=== PATIENT | female | born 1950 | race Caucasian/White ===

== ENCOUNTER 2023-09-27 19:57 | Inpatient (IN) ==
[2023-09-27] MEDS: Acetaminophen IV 1 GM/100ML 1,000 MG/100 ML BAG IV ONE (20:43)
[2023-09-27 20:45] LABS: Hemoglobin 10.1 g/dL (11.5-14.3); Mean Corpuscular Hemoglobin 23.8 pg (27-33); Mean Corpuscular Hgb Conc 32.5 g/dL (31-36); Mean Corpuscular Volume 73.1 fL (80-97); Platelet Count 125 10^3/uL (150-450); Red Blood Count 4.24 10^6/uL (3.63-4.92); Red Cell Distribution Width 18.1 % (12-17); White Blood Count 10.9 10^3/uL (3.8-11.8)
[2023-09-27 20:47] LABS: Activated Partial Thrombo Time 27.2 seconds (26.0-38.0); INR 1.3 (0.83-1.13)
[2023-09-27] MEDS: Cefepime 2 GM in Dextrose 2 GM/50 ML BAG IV ONE (21:00)
[2023-09-27 21:08] LABS: ABS Eosinophils 0.1 10^3/uL (0.0-0.5); ABS Lymphocytes 1.4 10^3/uL (1.0-4.8); ABS Monocytes 0.8 10^3/uL (0.0-0.9); ABS Neutrophils 8.6 10^3/uL (1.5-7.6); ABS Nucleated RBC 0.01 10^3/ul; Eosinophil % 0.9 %; Lymphocyte % 12.7 %; Nucleated Red Blood Cells % 0.1 %/100WBC (0.0-0.8)
[2023-09-27] MEDS: Lactated Ringers 1000 ml BAG 1,000 ML IV ONE (21:32)
[2023-09-27 21:41] LABS: Albumin 3.2 g/dL (3.2-5.2); Albumin/Globulin Ratio 0.8 (1-3); C Reactive Protein 116.25 mg/L (<8.01); Calcium 10.3 mg/dL (8.6-10.3); Creatinine, Serum 0.93 mg/dL (0.51-0.95); Globulin 3.9 g/dL (2-4); Potassium 4.9 mmol/L (3.5-5.0); Total Bilirubin 0.8 mg/dL (0.2-1.0); Total Protein 7.1 g/dL (6.4-8.9); eGFR CKD-EPI 64.5 (>60)
[2023-09-27 22:26] LABS: Urine Appearance Clear; Urine Bilirubin Negative (Negative); Urine Blood Negative (Negative); Urine Color Light-Yellow; Urine Glucose 4+ (>=1000 mg/dL) (Negative); Urine Ketones Negative (Negative); Urine Nitrite Negative (Negative); Urine Protein Negative (Negative); Urine Urobilinogen Negative (Negative)
[2023-09-27 22:42] LABS: High Sensitivity Troponin 1 Hr 10 pg/mL (<15)
[2023-09-27] MEDS: Vancomycin 1,500 MG in NS 0.9% 250 ml 250 ML IVPB ONE (22:45)
[2023-09-28] MEDS: Lactated Ringers 1000 ml BAG 1,000 ML IV SCH ×2 (00:43→22:02)
[2023-09-28] MEDS ORDERED: Vancomycin per Pharmacy 1 EA NOTE FOLLOW UP SCH (01:00)
[2023-09-28] MEDS ORDERED: Cefepime 2 GM in Dextrose 2 GM/50 ML BAG IV SCH (05:30)
[2023-09-28] MEDS: ceFAZolin 2 GM PREMIX 2 GM/50 ML BAG IV SCH ×2 (05:32→22:10)
[2023-09-28 06:25] LABS: Calcium 9.7 mg/dL (8.6-10.3); Creatinine, Serum 0.89 mg/dL (0.51-0.95); Potassium 4.7 mmol/L (3.5-5.0)
[2023-09-28 06:42] LABS: ABS Eosinophils 0.1 10^3/uL (0.0-0.5); ABS Lymphocytes 0.7 10^3/uL (1.0-4.8); ABS Monocytes 0.8 10^3/uL (0.0-0.9); ABS Neutrophils 11.9 10^3/uL (1.5-7.6); Eosinophil % 0.5 %; Hematocrit 28.3 % (35-45); Hemoglobin 8.8 g/dL (11.5-14.3); Lymphocyte % 5.4 %; Mean Corpuscular Hemoglobin 22.7 pg (27-33); Mean Corpuscular Hgb Conc 31.2 g/dL (31-36); Mean Corpuscular Volume 72.7 fL (80-97); Mean Platelet Volume 8.6 fL (7.5-11.2); Platelet Count 116 10^3/uL (150-450); Red Blood Count 3.88 10^6/uL (3.63-4.92); Red Cell Distribution Width 18.2 % (12-17); White Blood Count 13.5 10^3/uL (3.8-11.8)
[2023-09-28] MEDS: DULoxetine DR 60 mg CAP PO SCH (08:19)
[2023-09-28] MEDS: Insulin GLARGINE 100 un/ml 10 ml VIAL SUBCUT SCH (08:19)
[2023-09-28] MEDS: Acetaminophen IV 1 GM/100ML 1,000 MG/100 ML BAG IV PRN (08:26)
[2023-09-28] MEDS: Dextrose 50% Syringe 50 ml 25 GM/50 ML SYRINGE IV PUSH PRN (14:19)
[2023-09-28] MEDS ORDERED: Bupivacaine 0.25% SDV 30 ML ONE (16:34)
[2023-09-28] MEDS ORDERED: Dexamethasone IV 4 MG/ML VIAL 1 ml VIAL ONE (16:59)
[2023-09-28] MEDS ORDERED: Midazolam 2 mg/2 ml VIAL 1 mg/ml 2 ml VIAL (2 mg) ONE (16:59)
[2023-09-28] MEDS ORDERED: Lidocaine 2% PF 5 ML VIAL ONE (16:59)
[2023-09-28] MEDS ORDERED: Ondansetron 4 mg VIAL 2 MG/ML 2 ml VIAL ONE (16:59)
[2023-09-28] MEDS ORDERED: fentaNYL 100 mcg/2 ml 50 MCG/ML VIAL ONE ×3 (16:59→20:11)
[2023-09-28] MEDS ORDERED: Propofol 10 MG/ML 20 ML BTL ONE (16:59)
[2023-09-28] MEDS ORDERED: Rocuronium 50 mg VIAL 10 mg/ml 5 ml VIAL (50 mg) ONE (18:00)
[2023-09-28] MEDS ORDERED: Ondansetron 4 mg VIAL 2 MG/ML 2 ml VIAL IV PRN (20:07)
[2023-09-28] MEDS ORDERED: Naloxone 0.4 mg VIAL 0.4 mg/ml 1 ml VIAL IV PRN (20:07)
[2023-09-28] MEDS ORDERED: HYDROmorphone 1 MG/1 ML SYRINGE IV PRN (20:07)
[2023-09-28] MEDS ORDERED: Acetaminophen IV 1 GM/100ML 1,000 MG/100 ML BAG IV ONE (20:11)
[2023-09-28] MEDS: fentaNYL 100 mcg/2 ml 50 MCG/ML VIAL IV PRN (20:20)
[2023-09-28] MEDS: Acetaminophen IV 1 GM/100ML 1,000 MG/100 ML BAG IV ONE (20:23)
[2023-09-28] MEDS ORDERED: NS 0.45% 1000 ml BAG 1,000 ML IV SCH (21:00)
[2023-09-28] MEDS: Triamcinolone 0.5% OINT 1 TUBE TOPICAL SCH (22:31)
[2023-09-28] MEDS: Buffered Lidocaine 1% SYRIN 1 ml INTRADERM ONE (22:59)
[2023-09-28] MEDS: Scopolamine 1 mg/72hr PATCH TRANSDERM ONE (22:59)
[2023-09-29] MEDS ORDERED: Naloxone 0.4 mg VIAL 0.4 mg/ml 1 ml VIAL ONE (09:15)
[2023-09-29] MEDS ORDERED: fentaNYL 100 mcg/2 ml 50 MCG/ML VIAL ONE (09:15)
[2023-09-29] MEDS ORDERED: Flumazenil 0.5 mg/5 ml 0.1 MG/ML 5 ml VIAL ONE (09:15)
[2023-09-29] MEDS ORDERED: Midazolam 5 mg/5 ml VIAL 1 mg/ml 5 ml VIAL (5 mg) ONE (09:16)
[2023-09-29] MEDS: Lidocaine 1% MPF 5 ML VIAL INJ ONE (12:26)
[2023-09-29] MEDS: Midazolam 10 mg/10 ml VIAL 1 mg/ml 10 ml VIAL (10 mg) IV SLOW PU ONE (12:27)
[2023-09-29] MEDS: fentaNYL 100 mcg/2 ml 50 MCG/ML VIAL IV SLOW PU ONE (12:27)
[2023-09-29 15:58] LABS: ABS Lymphocytes 0.9 10^3/uL (1.0-4.8); ABS Monocytes 0.7 10^3/uL (0.0-0.9); ABS Neutrophils 9.4 10^3/uL (1.5-7.6); Eosinophil % 0.1 %; Hematocrit 28.6 % (35-45); Hemoglobin 8.8 g/dL (11.5-14.3); Lymphocyte % 8.3 %; Mean Corpuscular Hemoglobin 22.6 pg (27-33); Mean Corpuscular Hgb Conc 30.9 g/dL (31-36); Mean Corpuscular Volume 73.3 fL (80-97); Mean Platelet Volume 8.8 fL (7.5-11.2); Platelet Count 122 10^3/uL (150-450); Red Cell Distribution Width 18.2 % (12-17)
[2023-09-29 16:06] LABS: Calcium 9.9 mg/dL (8.6-10.3); Creatinine, Serum 0.9 mg/dL (0.51-0.95); Magnesium 1.6 mg/dL (1.9-2.7); Potassium 4.8 mmol/L (3.5-5.0); eGFR CKD-EPI 67.1 (>60)
[2023-09-30 09:06] LABS: Hematocrit 31.5 % (35-45); Mean Corpuscular Hemoglobin 23.2 pg (27-33); Mean Corpuscular Hgb Conc 31.8 g/dL (31-36); Mean Corpuscular Volume 73.2 fL (80-97); Mean Platelet Volume 9.3 fL (7.5-11.2); Platelet Count 152 10^3/uL (150-450); Red Blood Count 4.31 10^6/uL (3.63-4.92); Red Cell Distribution Width 18.8 % (12-17); White Blood Count 14.6 10^3/uL (3.8-11.8)
[2023-09-30 09:28] LABS: Calcium 10.5 mg/dL (8.6-10.3); Creatinine, Serum 0.84 mg/dL (0.51-0.95); Potassium 4.7 mmol/L (3.5-5.0); eGFR CKD-EPI 72.9 (>60)
[2023-09-30 09:45] LABS: ABS Eosinophils 0.1 10^3/uL (0.0-0.5); ABS Lymphocytes 1.8 10^3/uL (1.0-4.8); ABS Monocytes 1.1 10^3/uL (0.0-0.9); ABS Neutrophils 11.7 10^3/uL (1.5-7.6); ABS Nucleated RBC 0.01 10^3/ul; Eosinophil % 0.6 %; Lymphocyte % 12.1 %; Microcytosis 2+; Nucleated Red Blood Cells % 0.1 %/100WBC (0.0-0.8)
[2023-10-01] MEDS: Docusate LIQ 100 MG/10 ML UDC PO SCH (10:39)
[2023-10-01 11:53] LABS: Hematocrit 29.1 % (35-45); Hemoglobin 9.2 g/dL (11.5-14.3); Mean Platelet Volume 8.7 fL (7.5-11.2); Platelet Count 139 10^3/uL (150-450); Red Blood Count 3.96 10^6/uL (3.63-4.92); Red Cell Distribution Width 18.1 % (12-17); White Blood Count 11.6 10^3/uL (3.8-11.8)
[2023-10-01 12:06] LABS: Calcium 9.2 mg/dL (8.6-10.3); Creatinine, Serum 0.86 mg/dL (0.51-0.95); eGFR CKD-EPI 70.8 (>60)
[2023-10-01 13:15] LABS: ABS Basophils 0.1 10^3/uL (0.0-0.1); ABS Eosinophils 0.1 10^3/uL (0.0-0.5); ABS Lymphocytes 1.7 10^3/uL (1.0-4.8); ABS Monocytes 1.1 10^3/uL (0.0-0.9); ABS Neutrophils 8.7 10^3/uL (1.5-7.6); Eosinophil % 0.7 %; Lymphocyte % 14.2 %; Mean Corpuscular Hemoglobin 23.2 pg (27-33); Mean Corpuscular Hgb Conc 31.5 g/dL (31-36); Mean Corpuscular Volume 73.6 fL (80-97); Microcytosis 2+
[2023-10-01 14:46] LABS: Anion Gap 8 mmol/L (2-16); Blood Urea Nitrogen 19 mg/dL (6-24); CO2 Carbon Dioxide 23 mmol/L (22-32); Calcium 9.8 mg/dL (8.6-10.3); Chloride 94 mmol/L (101-111); Creatinine, Serum 0.84 mg/dL (0.51-0.95); Glucose 243 mg/dL (70-100); Sodium 125 mmol/L (135-145); eGFR CKD-EPI 72.9 (>60)
[2023-10-01 15:46] LABS: Potassium, Whole Blood 5.6 mmol/L (3.4-4.5)
[2023-10-01 16:27] LABS: IgG Immunoblot Positive (Negative); IgM Immunoblot Negative (Negative)
[2023-10-01 16:32] LABS: Osmolality Serum 278 mOsm/kg (275-295)
[2023-10-01] MEDS: NS 0.9% 1000 ml BAG 1,000 ML IV SCH (21:31)
[2023-10-01] MEDS: Sodium Polystyrene ORAL.SUSP 15 GM/60 ML BTL PO ONE (21:48)
[2023-10-02 07:22] LABS: Hematocrit 28.1 % (35-45); Hemoglobin 9.1 g/dL (11.5-14.3); Mean Corpuscular Hemoglobin 23.4 pg (27-33); Mean Corpuscular Hgb Conc 32.4 g/dL (31-36); Mean Corpuscular Volume 72.3 fL (80-97); Mean Platelet Volume 9.4 fL (7.5-11.2); Platelet Count 121 10^3/uL (150-450); Red Blood Count 3.88 10^6/uL (3.63-4.92); Red Cell Distribution Width 17.9 % (12-17)
[2023-10-02 07:38] LABS: Calcium 9.4 mg/dL (8.6-10.3); Creatinine, Serum 0.68 mg/dL (0.51-0.95); Magnesium 1.5 mg/dL (1.9-2.7); Potassium 4.3 mmol/L (3.5-5.0); eGFR CKD-EPI 91.3 (>60)
[2023-10-02] MEDS: Insulin GLARGINE 100 un/ml 10 ml VIAL SUBCUT SCH (08:46)
[2023-10-02] MEDS: Polyethylene Glycol 3350 17 GM PACKET PO PRN (08:47)
[2023-10-02] MEDS: Magnesium Sulfate 2 gm BAG 2 GM/50 ML BAG IVPB ONE (08:50)
[2023-10-02] MEDS ORDERED: Dextrose 50% Syringe 50 ml 25 GM/50 ML SYRINGE IV PUSH PRN (09:44)
[2023-10-02 10:02] LABS: ABS Basophils 0.1 10^3/uL (0.0-0.1); ABS Eosinophils 0.1 10^3/uL (0.0-0.5); ABS Lymphocytes 1.6 10^3/uL (1.0-4.8); ABS Monocytes 1.2 10^3/uL (0.0-0.9); ABS Neutrophils 7.9 10^3/uL (1.5-7.6); Lymphocyte % 14.8 %; Microcytosis 2+
[2023-10-02 11:12] LABS: Urine Osmo 575 mOsm/kg (150-1150)
[2023-10-02] MEDS ORDERED: Magnesium Hydroxide LIQ 30 ML UDC PO PRN (11:23)
[2023-10-03 06:57] LABS: Calcium 9.6 mg/dL (8.6-10.3); Creatinine, Serum 0.65 mg/dL (0.51-0.95); Magnesium 1.6 mg/dL (1.9-2.7); Potassium 4.3 mmol/L (3.5-5.0); eGFR CKD-EPI 92.3 (>60)
[2023-10-03 07:38] LABS: ABS Basophils 0.1 10^3/uL (0.0-0.1); ABS Eosinophils 0.1 10^3/uL (0.0-0.5); ABS Lymphocytes 1.3 10^3/uL (1.0-4.8); ABS Monocytes 1.1 10^3/uL (0.0-0.9); ABS Neutrophils 7.4 10^3/uL (1.5-7.6); Eosinophil % 1.1 %; Hematocrit 27.6 % (35-45); Lymphocyte % 13.3 %; Mean Corpuscular Hemoglobin 23.6 pg (27-33); Mean Corpuscular Hgb Conc 32.6 g/dL (31-36); Mean Corpuscular Volume 72.3 fL (80-97); Mean Platelet Volume 8.5 fL (7.5-11.2); Microcytosis 2+; Platelet Count 145 10^3/uL (150-450); Red Blood Count 3.82 10^6/uL (3.63-4.92); Red Cell Distribution Width 17.9 % (12-17); White Blood Count 10.1 10^3/uL (3.8-11.8)
[2023-10-03] MEDS: Polyethylene Glycol 3350 17 GM PACKET PO SCH (08:56)
[2023-10-03 09:09] LABS: Ferritin 64.9 ng/mL (11-307)
[2023-10-03 09:13] LABS: Folate 8.49 ng/mL (5.90-24.80)
[2023-10-03] MEDS: Hemorrhoidal OINT 1 TUBE PR PRN (09:33)
[2023-10-04] MEDS: Enoxaparin 40 MG/0.4 ML SYR SUBCUT SCH (14:20)
[2023-10-04] MEDS: DULoxetine DR 60 mg CAP PO SCH (21:36)
[2023-10-05 06:48] LABS: ABS Eosinophils 0.1 10^3/uL (0.0-0.5); ABS Lymphocytes 1.1 10^3/uL (1.0-4.8); ABS Neutrophils 4.4 10^3/uL (1.5-7.6); Eosinophil % 1.9 %; Hematocrit 25.6 % (35-45); Hemoglobin 8.6 g/dL (11.5-14.3); Lymphocyte % 16.7 %; Mean Corpuscular Hemoglobin 23.9 pg (27-33); Mean Corpuscular Hgb Conc 33.5 g/dL (31-36); Mean Corpuscular Volume 71.5 fL (80-97); Mean Platelet Volume 9.4 fL (7.5-11.2); Platelet Count 209 10^3/uL (150-450); Red Blood Count 3.58 10^6/uL (3.63-4.92); Red Cell Distribution Width 18.7 % (12-17); White Blood Count 6.7 10^3/uL (3.8-11.8)
[2023-10-05 06:54] LABS: Anion Gap 9 mmol/L (2-16); Blood Urea Nitrogen 16 mg/dL (6-24); CO2 Carbon Dioxide 25 mmol/L (22-32); Calcium 9.8 mg/dL (8.6-10.3); Chloride 97 mmol/L (101-111); Creatinine, Serum 0.54 mg/dL (0.51-0.95); Glucose 110 mg/dL (70-100); Sodium 131 mmol/L (135-145); eGFR CKD-EPI 96.6 (>60)
[2023-10-05] MEDS ORDERED: Fluconazole 400 MG IVPREMIX 400 MG/200 ML BAG IVPB SCH (12:00)
[2023-10-05] MEDS: Fluconazole 400 MG IVPREMIX 400 MG/200 ML BAG IVPB SCH (14:03)
[2023-10-05 14:20] VITALS: BP 119/59
[2023-10-06] MEDS ORDERED: Fluconazole 400 MG IVPREMIX 400 MG/200 ML BAG IVPB SCH (15:00)
== END 2023-10-05 16:32 | DRG 513 ==
LOC: EDHOLD 19:57 → ED 19:57 → SUATTDRO 09-28 08:00 → AA 09-28 14:44 → SSU 09-28 21:02
PROVIDERS: ADMIT Hospitalist; ATTEND Internal Medicine

== ENCOUNTER 2023-10-01 10:48 | Inpatient (IN) ==
[2023-10-05] MEDS ORDERED: Dextrose 50% Syringe 50 ml 25 GM/50 ML SYRINGE IV PUSH PRN ×2 (17:15→17:21)
[2023-10-05] MEDS: Hemorrhoidal OINT 1 TUBE PR PRN (19:25)
[2023-10-05] MEDS: Senna TAB 8.6 mg TAB PO PRN (21:36)
[2023-10-05] MEDS: Triamcinolone 0.5% OINT 1 TUBE TOPICAL SCH (21:37)
[2023-10-05] MEDS: ceFAZolin 2 GM in NS PREMIX 2 GM/100 ML BAG IVPB SCH (22:44)
[2023-10-06] MEDS: DULoxetine DR 60 mg CAP PO SCH (08:02)
[2023-10-06] MEDS: Polyethylene Glycol 3350 17 GM PACKET PO SCH (08:05)
[2023-10-06] MEDS: Insulin GLARGINE 100 un/ml 10 ml VIAL SUBCUT SCH (08:09)
[2023-10-06] MEDS: Enoxaparin 40 MG/0.4 ML SYR SUBCUT SCH (13:37)
[2023-10-06] MEDS ORDERED: Fluconazole 400 MG IVPREMIX 400 MG/200 ML BAG IVPB SCH (15:00)
[2023-10-07 06:40] LABS: Albumin 2.8 g/dL (3.2-5.2); Albumin/Globulin Ratio 0.7 (1-3); C Reactive Protein 65.56 mg/L (<8.01); Calcium 10.9 mg/dL (8.6-10.3); Creatinine, Serum 0.61 mg/dL (0.51-0.95); Globulin 4.2 g/dL (2-4); Potassium 4.7 mmol/L (3.5-5.0); Total Bilirubin 0.5 mg/dL (0.2-1.0); eGFR CKD-EPI 93.8 (>60)
[2023-10-07 06:54] LABS: ABS Basophils 0.1 10^3/uL (0.0-0.1); ABS Eosinophils 0.1 10^3/uL (0.0-0.5); ABS Monocytes 0.6 10^3/uL (0.0-0.9); ABS Nucleated RBC 0.02 10^3/ul; Eosinophil % 2.2 %; Hematocrit 29.8 % (35-45); Hemoglobin 9.5 g/dL (11.5-14.3); Lymphocyte % 20.2 %; Mean Corpuscular Hemoglobin 23.3 pg (27-33); Mean Corpuscular Hgb Conc 31.9 g/dL (31-36); Mean Platelet Volume 8.3 fL (7.5-11.2); Nucleated Red Blood Cells % 0.5 %/100WBC (0.0-0.8); Platelet Count 212 10^3/uL (150-450); Red Blood Count 4.08 10^6/uL (3.63-4.92); Red Cell Distribution Width 18.6 % (12-17); White Blood Count 4.7 10^3/uL (3.8-11.8)
[2023-10-08] MEDS: ceFAZolin 2 GM in NS PREMIX 2 GM/100 ML BAG IVPB SCH (02:07)
[2023-10-08] MEDS: DULoxetine DR 60 mg CAP PO SCH (21:30)
[2023-10-09 18:58] LABS: Urine Appearance Clear; Urine Bilirubin Negative (Negative); Urine Blood Negative (Negative); Urine Color Light-Yellow; Urine Glucose Negative (Negative); Urine Ketones Negative (Negative); Urine Nitrite Negative (Negative); Urine Protein Trace (Negative); Urine Specific Gravity 1.019 (1.002-1.030); Urine Urobilinogen Negative (Negative); Urine pH 5.5 (5.0-8.0)
[2023-10-11] MEDS ORDERED: Al Hydrox/Mg Hydrox/Simet LIQ 30 ML UDC PO PRN (11:27)
[2023-10-11] MEDS: Ondansetron ODT 4 mg TAB 4 MG TAB SL PRN (11:54)
[2023-10-11] MEDS: ceFAZolin 2 GM in NS PREMIX 2 GM/100 ML BAG IVPB SCH (13:10)
[2023-10-12] MEDS: Insulin GLARGINE 100 un/ml 10 ml VIAL SUBCUT SCH (09:39)
[2023-10-13 05:42] LABS: ABS Eosinophils 0.2 10^3/uL (0.0-0.5); ABS Lymphocytes 0.8 10^3/uL (1.0-4.8); ABS Monocytes 0.5 10^3/uL (0.0-0.9); ABS Nucleated RBC 0.01 10^3/ul; Eosinophil % 4.7 %; Hematocrit 25.1 % (35-45); Hemoglobin 8.2 g/dL (11.5-14.3); Lymphocyte % 23.8 %; Mean Corpuscular Hemoglobin 23.7 pg (27-33); Mean Corpuscular Hgb Conc 32.6 g/dL (31-36); Mean Corpuscular Volume 72.8 fL (80-97); Mean Platelet Volume 8.2 fL (7.5-11.2); Nucleated Red Blood Cells % 0.2 %/100WBC (0.0-0.8); Platelet Count 160 10^3/uL (150-450); Red Blood Count 3.44 10^6/uL (3.63-4.92); Red Cell Distribution Width 19.3 % (12-17); White Blood Count 3.5 10^3/uL (3.8-11.8)
[2023-10-13 06:01] LABS: Anion Gap 5 mmol/L (2-16); Blood Urea Nitrogen 17 mg/dL (6-24); C Reactive Protein 61.91 mg/L (<8.01); CO2 Carbon Dioxide 30 mmol/L (22-32); Chloride 98 mmol/L (101-111); Creatinine, Serum 0.68 mg/dL (0.51-0.95); Glucose 91 mg/dL (70-100); Potassium 4.3 mmol/L (3.5-5.0); Sodium 133 mmol/L (135-145); eGFR CKD-EPI 91.3 (>60)
[2023-10-13 06:05] LABS: ALT < 3 U/L (7-52); AST 32 U/L (13-39); Albumin 2.7 g/dL (3.2-5.2); Albumin/Globulin Ratio 0.7 (1-3); Alkaline Phosphatase 125 U/L (35-149); Globulin 3.9 g/dL (2-4); Total Bilirubin 0.5 mg/dL (0.2-1.0); Total Protein 6.6 g/dL (6.4-8.9)
[2023-10-13] MEDS: Insulin GLARGINE 100 un/ml 10 ml VIAL SUBCUT SCH (09:46)
[2023-10-16] MEDS: ceFAZolin 2 GM PREMIX 2 GM/50 ML BAG IV SCH (05:15)
[2023-10-16 05:55] LABS: ABS Eosinophils 0.2 10^3/uL (0.0-0.5); ABS Lymphocytes 0.9 10^3/uL (1.0-4.8); ABS Monocytes 0.5 10^3/uL (0.0-0.9); ABS Neutrophils 1.6 10^3/uL (1.5-7.6); Eosinophil % 5.2 %; Hematocrit 26.3 % (35-45); Hemoglobin 8.6 g/dL (11.5-14.3); Lymphocyte % 28.4 %; Mean Corpuscular Hemoglobin 23.8 pg (27-33); Mean Corpuscular Hgb Conc 32.6 g/dL (31-36); Mean Platelet Volume 8.4 fL (7.5-11.2); Platelet Count 174 10^3/uL (150-450); Red Cell Distribution Width 18.9 % (12-17); White Blood Count 3.3 10^3/uL (3.8-11.8)
[2023-10-16 06:19] LABS: Anion Gap 8 mmol/L (2-16); Blood Urea Nitrogen 19 mg/dL (6-24); C Reactive Protein 32.47 mg/L (<8.01); CO2 Carbon Dioxide 30 mmol/L (22-32); Calcium 10.9 mg/dL (8.6-10.3); Chloride 98 mmol/L (101-111); Creatinine, Serum 0.73 mg/dL (0.51-0.95); Glucose 88 mg/dL (70-100); Sodium 136 mmol/L (135-145); eGFR CKD-EPI 86.2 (>60)
[2023-10-16 06:21] LABS: ALT < 3 U/L (7-52); AST 32 U/L (13-39); Albumin 2.8 g/dL (3.2-5.2); Albumin/Globulin Ratio 0.7 (1-3); Alkaline Phosphatase 120 U/L (35-149); Globulin 4.1 g/dL (2-4); Total Bilirubin 0.5 mg/dL (0.2-1.0); Total Protein 6.9 g/dL (6.4-8.9)
[2023-10-16] MEDS: DULoxetine DR 30 mg CAP PO SCH (20:55)
[2023-10-18 10:08] LABS: ABS Eosinophils 0.2 10^3/uL (0.0-0.5); ABS Lymphocytes 1.3 10^3/uL (1.0-4.8); ABS Monocytes 0.8 10^3/uL (0.0-0.9); ABS Neutrophils 3.2 10^3/uL (1.5-7.6); Eosinophil % 2.9 %; Hematocrit 27.7 % (35-45); Hemoglobin 8.8 g/dL (11.5-14.3); Lymphocyte % 23.4 %; Mean Corpuscular Hgb Conc 31.9 g/dL (31-36); Mean Corpuscular Volume 72.1 fL (80-97); Mean Platelet Volume 8.4 fL (7.5-11.2); Platelet Count 186 10^3/uL (150-450); Red Blood Count 3.84 10^6/uL (3.63-4.92); Red Cell Distribution Width 19.3 % (12-17); White Blood Count 5.4 10^3/uL (3.8-11.8)
[2023-10-18 10:23] LABS: C Reactive Protein 80.51 mg/L (<8.01); Calcium 10.9 mg/dL (8.6-10.3); Creatinine, Serum 0.65 mg/dL (0.51-0.95); Potassium 3.6 mmol/L (3.5-5.0); eGFR CKD-EPI 92.3 (>60)
[2023-10-18] MEDS: Senna TAB 8.6 mg TAB PO SCH (19:40)
[2023-10-20] MEDS: Cosyntropin 0.25 MG VIAL IV ONE (10:35)
[2023-10-21] MEDS ORDERED: DULoxetine DR 30 mg CAP PO SCH (21:00)
[2023-10-22] MEDS ORDERED: DULoxetine DR 30 mg CAP PO SCH (09:00)
[2023-10-22] MEDS: DULoxetine DR 30 mg CAP PO SCH (21:32)
[2023-10-23 06:34] LABS: Albumin 2.9 g/dL (3.2-5.2); Albumin/Globulin Ratio 0.7 (1-3); C Reactive Protein 32.51 mg/L (<8.01); Calcium 10.1 mg/dL (8.6-10.3); Creatinine, Serum 0.74 mg/dL (0.51-0.95); Globulin 4.1 g/dL (2-4); Potassium 3.2 mmol/L (3.5-5.0); Total Bilirubin 0.5 mg/dL (0.2-1.0); eGFR CKD-EPI 84.8 (>60)
[2023-10-23 07:12] LABS: ABS Eosinophils 0.1 10^3/uL (0.0-0.5); ABS Lymphocytes 0.9 10^3/uL (1.0-4.8); ABS Monocytes 0.5 10^3/uL (0.0-0.9); ABS Nucleated RBC 0.01 10^3/ul; Eosinophil % 3.7 %; Lymphocyte % 24.3 %; Mean Corpuscular Hemoglobin 23.5 pg (27-33); Mean Corpuscular Volume 73.2 fL (80-97); Nucleated Red Blood Cells % 0.2 %/100WBC (0.0-0.8); Platelet Count 142 10^3/uL (150-450); Red Blood Count 3.41 10^6/uL (3.63-4.92); Red Cell Distribution Width 19.4 % (12-17); White Blood Count 3.6 10^3/uL (3.8-11.8)
[2023-10-23] MEDS: Potassium Chlor 20 meq TAB.ER PO ONE (14:41)
[2023-10-24] MEDS: Potassium Chlor 20 meq TAB.ER PO SCH (08:39)
[2023-10-24] MEDS: Magnesium Hydroxide LIQ 30 ML UDC PO PRN (21:29)
[2023-10-26 06:44] LABS: ABS Eosinophils 0.1 10^3/uL (0.0-0.5); ABS Lymphocytes 0.9 10^3/uL (1.0-4.8); ABS Monocytes 0.7 10^3/uL (0.0-0.9); ABS Neutrophils 3.2 10^3/uL (1.5-7.6); Eosinophil % 2.7 %; Hematocrit 25.5 % (35-45); Hemoglobin 8.3 g/dL (11.5-14.3); Lymphocyte % 18.1 %; Mean Corpuscular Hemoglobin 23.9 pg (27-33); Mean Corpuscular Hgb Conc 32.4 g/dL (31-36); Mean Corpuscular Volume 73.9 fL (80-97); Mean Platelet Volume 8.2 fL (7.5-11.2); Platelet Count 162 10^3/uL (150-450); Red Blood Count 3.45 10^6/uL (3.63-4.92); Red Cell Distribution Width 19.5 % (12-17); White Blood Count 4.9 10^3/uL (3.8-11.8)
[2023-10-26 07:14] LABS: Albumin 2.9 g/dL (3.2-5.2); Albumin/Globulin Ratio 0.7 (1-3); C Reactive Protein 53.26 mg/L (<8.01); Calcium 10.5 mg/dL (8.6-10.3); Creatinine, Serum 0.58 mg/dL (0.51-0.95); Globulin 4.2 g/dL (2-4); Potassium 3.6 mmol/L (3.5-5.0); Total Bilirubin 0.6 mg/dL (0.2-1.0); Total Protein 7.1 g/dL (6.4-8.9); eGFR CKD-EPI 94.9 (>60)
[2023-10-26] MEDS: Potassium Chlor 20 meq TAB.ER PO SCH (17:24)
[2023-10-29 07:09] LABS: Calcium 10.8 mg/dL (8.6-10.3); Creatinine, Serum 0.65 mg/dL (0.51-0.95); Potassium 4.4 mmol/L (3.5-5.0); eGFR CKD-EPI 92.3 (>60)
[2023-11-02 10:04] LABS: ABS Basophils 0.1 10^3/uL (0.0-0.1); ABS Eosinophils 0.1 10^3/uL (0.0-0.5); ABS Monocytes 0.6 10^3/uL (0.0-0.9); ABS Neutrophils 3.6 10^3/uL (1.5-7.6); Eosinophil % 2.7 %; Hematocrit 27.4 % (35-45); Hemoglobin 8.4 g/dL (11.5-14.3); Lymphocyte % 19.3 %; Mean Corpuscular Hemoglobin 22.7 pg (27-33); Mean Corpuscular Hgb Conc 30.7 g/dL (31-36); Mean Corpuscular Volume 73.9 fL (80-97); Mean Platelet Volume 8.5 fL (7.5-11.2); Platelet Count 163 10^3/uL (150-450); Red Blood Count 3.71 10^6/uL (3.63-4.92); Red Cell Distribution Width 19.8 % (12-17); White Blood Count 5.4 10^3/uL (3.8-11.8)
[2023-11-02 10:20] LABS: Albumin 3.1 g/dL (3.2-5.2); Albumin/Globulin Ratio 0.7 (1-3); C Reactive Protein 25.35 mg/L (<8.01); Calcium 10.7 mg/dL (8.6-10.3); Creatinine, Serum 0.82 mg/dL (0.51-0.95); Globulin 4.4 g/dL (2-4); Potassium 3.9 mmol/L (3.5-5.0); Total Bilirubin 0.6 mg/dL (0.2-1.0); Total Protein 7.5 g/dL (6.4-8.9)
[2023-11-04 17:28] LABS: Urine Appearance Clear; Urine Bilirubin Negative (Negative); Urine Blood 1+ (Negative); Urine Color Light-Yellow; Urine Glucose Negative (Negative); Urine Ketones Negative (Negative); Urine Nitrite Negative (Negative); Urine Protein Trace (Negative); Urine Specific Gravity 1.015 (1.002-1.030); Urine Urobilinogen Negative (Negative); Urine pH 6.5 (5.0-8.0)
[2023-11-04 17:32] LABS: Urine Bacteria Absent /HPF (Absent); Urine Red Blood Cell 3+(>10/hpf) /HPF (0-Trace); Urine Squamous Epithelial Cell Present /HPF (Absent); Urine White Blood Cell Trace(0-5/hpf) /HPF (0-Trace)
[2023-11-05 05:54] VITALS: BP 150/72
[2023-11-05 06:44] LABS: Calcium 10.8 mg/dL (8.6-10.3); Creatinine, Serum 0.68 mg/dL (0.51-0.95); Potassium 4.1 mmol/L (3.5-5.0); eGFR CKD-EPI 91.3 (>60)
[2023-11-05] MEDS ORDERED: Sodium Phosphate ADULT ENEMA 133 ML BTL PR PRN (09:42)
== END 2023-11-05 11:53 | DRG 872 ==
LOC: PMRU 10-05 16:32
PROVIDERS: ADMIT Physical Medicine & Rehabilitation; ATTEND Physical Medicine & Rehabilitation